=== PATIENT | female | born 1995 | race Caucasian/White ===

== ENCOUNTER 2018-05-04 07:40 | Emergency (ER) | payer BC ==
[2018-05-04] MEDS ORDERED: BUPIVACAINE HCL 0.5 % INJ/PF 30 ML SDV INJ ONE (07:53)
[2018-05-04] MEDS ORDERED: LIDOCAINE 1% INJ (10 MG/ML) 10 ML MDV INJ ONE (07:54)
--- NOTE | 2018-05-04 07:54 | ER Document Report ---
ED Oral Problem - General Mode of Arrival: Ambulatory Information source: Patient TRAVEL OUTSIDE OF THE [place] IN LAST 30 DAYS: No <ABY ZHANG - Last Filed: 05/04/18 08:16> <FAYE PUGA - Last Filed: 05/04/18 09:53> - General Chief Complaint: Toothache Stated Complaint: MOUTH PAIN Time Seen by Provider: 05/04/18 07:43 Notes: Patient is a 22 year old female presenting to the emergency department complaining of right sided mouth pain onset 4 days ago worsening 2 days ago. Patient states the pain radiates across the entire right side of her face further stating she believes it is originating from a half tooth on the upper right side. She states she has noticed some drainage from this tooth. Patient states she has an appointment with a dentist on on 05/06/2018 although she could not wait any longer due to severity of her pain. Patient denies fevers, facial swelling or difficulty swallowing. Patient mentions being recently diagnosed with Hepatitis C but is recently cured due to medications. (ABY ZHANG) - Related Data Allergies/Adverse Reactions: No Known Allergies Allergy (Unverified 05/04/18 08:08) Past Medical History - General Information source: Patient - Social History Smoking Status: Former Smoker Cigarette use (# per day): No Chew tobacco use (# tins/day): No Frequency of alcohol use: None Drug Abuse: None Family History: Reviewed & Not Pertinent Infectious Medical History: Reports: Hx Hepatitis - C- cured from medications <ABY ZHANG - Last Filed: 05/04/18 08:16> Review of Systems - Review of Systems Constitutional: No symptoms reported EENT: See HPI, Mouth pain, Dental problem Cardiovascular: No symptoms reported Respiratory: No symptoms reported Gastrointestinal: No symptoms reported Genitourinary: No symptoms reported Female Genitourinary: No symptoms reported Musculoskeletal: No symptoms reported Skin: No symptoms reported Hematologic/Lymphatic: No symptoms reported Neurological/Psychological: No symptoms reported -: Yes All other systems reviewed and negative <ABY ZHANG - Last Filed: 05/04/18 08:16> Physical Exam <ABY ZHANG - Last Filed: 05/04/18 08:16> <FAYE PUGA - Last Filed: 05/04/18 09:53> - Vital signs Vitals: Temp Pulse Resp BP Pulse Ox 97.5 F 75 18 126/85 H 100 05/04/18 09:27 05/04/18 09:05/04/18 09:05/04/18 09:05/04/18 09:27 - Notes Notes: GENERAL: Alert, interacts well. No acute distress. HEAD: Normocephalic, atraumatic. EYES: Pupils equal, round, and reactive to light. Extraocular movements intact. ENT: Oral mucosa moist, tongue midline. Turbinate edema. Nares patent, no nasal septal hematoma, TM's intacts, Cavity to the second lower molar. No erythema to the gumline. NECK: Full range of motion. Supple. Trachea midline. LUNGS: No respiratory distress. EXTREMITIES: Moves all 4 extremities spontaneously. NEUROLOGICAL: Alert and oriented x3. Normal speech. PSYCH: Normal affect, normal mood. SKIN: Warm, dry, normal turgor. No rashes or lesions noted. (ABY ZHANG) Addition to the scribe exam there is a cavity to tooth 31 and 30, tooth 32 is missing, tooth #1 is fractured, there is no erythema. (FAYE PUGA) Course <ABY ZHANG - Last Filed: 05/04/18 08:16> <FAYE PUGA - Last Filed: 05/04/18 09:53> - Re-evaluation Re-evalutation: 05/04/18 08:24 There is evidence of cavities, states she is having discharge in your mouth, this is suggestive of infection though I do not see any localized area of erythema or any fluctuance that I could drain. Patient will be treated with penicillin, has been given a an inferior alveolar dental block using bupivacaine and lidocaine 50/50 mix and discharged home. Follow-up with dentist on Sunday. 05/04/18 09:53 Patient did not have significant relief from the dental block. Patient was given a Tessalon Perle to hold over the most painful area instead. (FAYE PUGA ) - Vital Signs Vital signs: Temp Pulse Resp BP Pulse Ox 97.5 F 75 18 126/85 H 100 05/04/18 09:27 05/04/18 09:27 05/04/18 09:27 05/04/18 09:27 05/04/18 09:27 Procedures <ABY ZHANG - Last Filed: 05/04/18 08:16> - Additional Procedures dental block Additional Procedures: Other - Dental block <FAYE PUGA - Last Filed: 05/04/18 09:53> - Additional Procedures dental block Notes: 05/04/18 08:29 Using 1 mL of 1% lidocaine and 1 mL of 0.5% bupivacaine this was infiltrated around the inferior alveolar nerve using an intraoral approach with good relief of her pain, patient tolerated procedure well. (FAYE PUGA) Discharge <ABY ZHANG - Last Filed: 05/04/18 08:16> <FAYE PUGA - Last Filed: 05/04/18 09:53> - Discharge Clinical Impression: Pain due to dental caries Condition: Stable Disposition: HOME, SELF-CARE Instructions: Penicillin V K ([facility]), Toothache ([facility]) Additional Instructions: Poke a hole in the Tessalon Perles 100 over the most painful tooth, allow the medication to seep out and numb the area. You may do this up to every 8 hours. Prescriptions: Benzonatate [Tessalon Perles 100 mg Capsule] 100 mg PO Q8HP PRN #10 capsule PRN Reason: Penicillin V Potassium [Penicillin Vk 500 mg Tablet] 500 mg PO BID #20 tablet Referrals: BENEDICT LOMAS MD [Primary Care Provider] - Follow up as needed Scribe Attestation: 05/04/18 09:53 I personally performed the services described in the documentation, reviewed and edited the documentation which was dictated to the scribe in my presence, and it accurately records my words and actions. (FAYE PUGA) Scribe Documentation - Scribe Written by Margo:: Margo Palm, 05/04/2018 08:03 acting as scribe for :: Marita <ABY ZHANG - Last Filed: 05/04/18 08:16>
[2018-05-04] MEDS ORDERED: PENICILLIN V POTASSIUM 500 MG TABLET PO ONE (08:25)
[2018-05-04] MEDS ORDERED: BENZONATATE 100 MG CAPSULE PO ONE (09:18)
[2018-05-04 09:30] VITALS: BP 126/85
== END 2018-05-04 09:35 | disposition home or self-care (01) ==
LOC: ER 07:40
PROC: 3E0T3BZ Introduction of Anesthetic Agent into Peripheral Nerves and Plexi, Percutaneous Approach (ICD-10-PCS; principal; 2018-05-04)
DX: K02.9 Dental caries, unspecified (principal); K08.89 Other specified disorders of teeth and supporting structures; B19.20 Unspecified viral hepatitis C without hepatic coma; Z87.891 Personal history of nicotine dependence
CPT/HCPCS: 99282; 64400; J3490